=== PATIENT | female | born 1935 | race Caucasian/White ===

== ENCOUNTER 2016-10-13 18:51 | Emergency (ER) | payer OTHER, MEDICAID ==
[~2016-10-13] VITALS: Ht 152.4 cm; Wt 54.5 kg
[2016-10-13 18:53] VITALS: BP 216/98; PULSE 88; RESP 22; TEMP 97.9; O2SAT 97
--- NOTE | 2016-10-13 18:59 | PD ---
Physical Exam Date Seen by Provider: Oct 13, 2016 Time Seen by Provider: 18:58 Narrative 80 Y/o female here with fall from tripping with injury to her Forehead. Patient reported to have LOC for a few seconds. Patient denies Neck pain or other injuries. Patient has no complaints of pain. Patient does not know when her last tetanus was. CT head ordered. Tetanus IM ordered. Patient stable to wait for Bed placement. Data Data Last Documented VS Vital Signs Date Time Temp Pulse Resp B/P Pulse Ox O2 Delivery O2 Flow Rate FiO2 10/13/16 18:53 97.9 88 22 216/98 97 MDM Medical Record Reviewed: Yes Supervised Visit with BRISEIDA: Yes Condition: Stable Giorgi Nunez Oct 13, 2016 18:58
[2016-10-13] MEDS ORDERED: TETANUS/DIPHTHERIA TOXOID ADULT 0.5 ML VIAL IM ONE (19:00)
[2016-10-13 20:18] VITALS: BP 185/82; PULSE 85; RESP 16; TEMP 98.5; O2SAT 98
[2016-10-13] MEDS ORDERED: LIDOCAINE 1%/EPINEPHrine 1:100,000 SOLN 20 ML VIAL INFIL ONE (20:30)
--- NOTE | 2016-10-13 20:41 | RADRPT ---
EXAM DATE/TIME: 10/13/2016 20:21 [facility] COMPARISON: No previous studies available for comparison. INDICATIONS : Trauma; fall. Forehead laceration. RADIATION DOSE: 56.35 CTDIvol (mGy) MEDICAL HISTORY : None SURGICAL HISTORY : None. ENCOUNTER: Initial ACUITY: 1 day PAIN SCALE: 0/10 LOCATION: cranial TECHNIQUE: Multiple contiguous axial images were obtained of the head. Using automated exposure control and adj ustment of the mA and/or kV according to patient size, radiation dose was kept as low as reasonably a chievable to obtain optimal diagnostic quality images. FINDINGS: CEREBRUM: The ventricles are normal for age. No evidence of midline shift, mass lesion, hemorrhage or acute in farction. No extra-axial fluid collections are seen. POSTERIOR FOSSA: The cerebellum and brainstem are intact. The 4th ventricle is midline. The cerebellopontine angle i s unremarkable. EXTRACRANIAL: The visualized portion of the orbits is intact. SKULL: Laceration of the left parasagittal frontal scalp. No radiopaque foreign bodies. The calvaria is in tact. No evidence of skull fracture. CONCLUSION: Negative noncontrast CT of the brain. Left frontal scalp laceration without evidence of skull fractu re. Philip Moncada MD on October 13, 2016 at 20:38 Board Certified Radiologist. This report was verified electronically.
--- NOTE | 2016-10-13 21:08 | PD ---
HPI Chief Complaint: Laceration/Skin Injury Time Seen by Provider: 21:01 Travel History International Travel<30 days: No Contact w/Intl Traveler<30days: No Traveled to known affect area: No History of Present Illness HPI 80-year-old female that presents to the ED for evaluation of injury to her forehead. Per patient she had a trip and fall today and she landed on her head on tile. She states that she possibly lost consciousness for one or 2 seconds. Patient came back to it. Patient has been acting normal per family. She only complains of a slight headache on the area of the cut otherwise she has no neck pain. No back pain. No arm pain or leg pain. She's been walking and was able to get get up on her own with assistance. She does not know she is up-to- date with vaccinations. She denies any chest pain or shortness of breath. No abdominal pain. She denies taking any blood thinners of any kind. She has no allergies to medication. No blurry vision or double vision. No other injuries reported at this time. Pain per patient is 2 out of 10. Patient is from out of town. [facility] Past Medical History Medical History: Denies Significant Hx Diminished Hearing: No Tetanus Vaccination: > 5 Years Past Surgical History Surgical History: No Previous Surgery Social History Alcohol Use: No Tobacco Use: No Substance Use: No Allergies-Medications (Allergen,Severity, Reaction): Coded Allergies: No Known Allergies (Unverified , 10/13/16) Review of Systems Except as stated in HPI: all other systems reviewed are Neg Physical Exam Narrative GENERAL: SKIN: Warm and dry. Patient has a for similar laceration to the mid forehead. Very well approximated. Slight bleeding noted. HEAD: Atraumatic. Normocephalic. EYES: Pupils equal and round 4 mm reactive to light and accommodation. No scleral icterus. No injection or drainage. ENT: No nasal bleeding or discharge. Mucous membranes pink and moist. Tongue is midline. No uvula deviation. NECK: Trachea midline. No JVD. CARDIOVASCULAR: Regular rate and rhythm. No murmurs, S3, S4. RESPIRATORY: No accessory muscle use. Clear to auscultation. Breath sounds equal bilaterally. GASTROINTESTINAL: Abdomen soft, non-tender, nondistended. Hepatic and splenic margins not palpable. MUSCULOSKELETAL: Extremities without clubbing, cyanosis, or edema. No obvious deformities. Full range of motion of the upper and lower extremities bilaterally. 2+ pulses bilaterally. Gait is normal. NEUROLOGICAL: Awake and alert. No obvious cranial nerve deficits. Motor grossly within normal limits. Five out of 5 muscle strength in the arms and legs. Normal speech. Sensation intact bilaterally. PSYCHIATRIC: Appropriate mood and affect; insight and judgment normal. Data Data Last Documented VS Vital Signs Date Time Temp Pulse Resp B/P Pulse Ox O2 Delivery O2 Flow Rate FiO2 10/13/16 20:18 98.5 85 16 185/[address] Brain W/O Iv Contrast(Rout) (10/13/16 18:59) Tetanus/Diphtheria Tox Adult (Tetanus/Di (10/13/16 19:00) Wound Care (10/13/16 20:16) Lidocai-Epi 1%-1:100,000 Inj (Xylocaine- (10/13/16 20:30) MDM Medical Decision Making Medical Screen Exam Complete: Yes Emergency Medical Condition: Yes Medical Record Reviewed: Yes Interpretation(s) Last Impressions Head CT 10/13/161858 Signed Impressions: Service Date/Time: Thursday, October 13, 2016 20:21 - CONCLUSION: Negative noncontrast CT of the brain. Left frontal scalp laceration without evidence of skull fracture. Philip Moncada MD Differential Diagnosis Laceration versus head injury versus traumatic head injury Narrative Course 80-year-old female that presents to the ED for evaluation of head injury. Patient was properly examined and was found to have signs and symptoms consistent appears to be head injury with laceration. CT of the head was ordered. Patient was given tetanus booster. After explained procedure to the patient and she agreed to it laceration. Per sitting procedure note. Told to get sutures removed in 7 days. Wound care was endorsed. CT of the head was negative for acute disease. Patient was pressure. Patient is neurovascular intact. I instructed family as to what to look for in case of emergency. She understands recent to come back. See ED worsening symptoms. Motrin or Tylenol for pain as needed. Ice to the area. Procedures Procedure Narrative LACERATION LOCATION: forehead lac LENGTH: 4 cm NUMBER OF STITCHES/KAVITA: 9 sutures REPAIR: The area of the laceration was prepped with Betadine and sterilely draped. The laceration was infiltrated with 1% Xylocaine. The wound was copiously irrigated and explored without evidence of foreign body, tendon injury or neurovascular injury. The wound was closed using 4-0 Ethilone. This was a 1 layer repair. A sterile dressing was applied. The patient was advised to keep the dressing clean and dry. Patient tolerated the procedure well. Diagnosis Primary Impression: Head injury, acute Qualified Code: S09.90XA - Head injury, acute, initial encounter Additional Impression: Laceration of head Qualified Code: S01.81XA - Laceration of other part of head without foreign body, initial encounter Patient Instructions: General Instructions Additional Instructions: Wound care daily with soap and water. You can apply bandaid if needed. Neosporyn or OTC antibiotic ointment to area as needed twice a day for at least 2 weeks to help with scarring and prevent infection. Meoderma OTC for scarring if needed. Avoid sun exposure for 2 months as the sun could make scar darker and more noticeable. Get sutures removed in 5-7 days. See ED if worst. Ice as needed. Tylenol for pain. Med/Other Pt SpecificInfo: No Change to Meds, Wound Care Disposition: 01 DISCHARGE HOME Condition: Stable Humble Doshi Oct 13, 2016 21:08
== END 2016-10-13 21:36 | disposition home or self-care (01) ==
LOC: NEPD 18:51
DX: S01.81XA Laceration without foreign body of other part of head, initial encounter (principal); Z23 Encounter for immunization; W18.09XA Striking against other object with subsequent fall, initial encounter; Y93.9 Activity, unspecified; Y92.9 Unspecified place or not applicable; Y99.8 Other external cause status
CPT/HCPCS: 12013; 70450; 90471; 90714

== ENCOUNTER 2016-10-16 02:42 | Inpatient (IN) | payer MEDICAID, OTHER ==
[~2016-10-16] VITALS: Ht 149.9 cm; Wt 57.2 kg
[2016-10-16 02:44] VITALS: BP 177/75; PULSE 85; RESP 17; TEMP 97.8; O2SAT 96
--- NOTE | 2016-10-16 02:50 | PD ---
HPI Chief Complaint: fall, right hip pain Time Seen by Provider: 02:49 Travel History International Travel<30 days: No Contact w/Intl Traveler<30days: No Traveled to known affect area: No History of Present Illness HPI 80-year-old female fell after she came out of the bathroom and was unable to stand or ambulate because of right hip pain. She was brought in by EMS. Patient had fallen couple days ago and hit her head. She was seen in this emergency room and had sutures put in. She is here with her daughter for her grandsons graduation ceremony. They are from [place]. This time patient did not hit her head. No history of syncope or loss of consciousness. She is complaining of right hip pain. Vital signs were within acceptable limits. [facility] Past Medical History Narrative Medical List of her past medical, surgical, social and family history is reviewed from the nursing note. Diminished Hearing: No Social History Alcohol Use: No Tobacco Use: No Substance Use: No Allergies-Medications (Allergen,Severity, Reaction): Coded Allergies: No Known Allergies (Unverified , 10/16/16) Comments No known drug allergies. Reported Meds & Prescriptions Reported Meds & Active Scripts Active Reported Aspirin 81 Mg Tabdr 81 Mg PO DAILY Narrative Medication Awaiting for the nurse to give the medication reconciliation. As per the daughter patient is not taking any medications. Review of Systems Except as stated in HPI: all other systems reviewed are Neg Physical Exam Narrative GENERAL: Awake, alert, elderly, mild distress SKIN: Focused skin assessment warm/dry. Scabs with healing wound and sutures on the middle of the forehead HEAD: Atraumatic. Normocephalic. EYES: Pupils equal and round. No scleral icterus. No injection or drainage. ENT: No nasal bleeding or discharge. Mucous membranes pink and moist. NECK: Trachea midline. No JVD. CARDIOVASCULAR: Regular rate and rhythm. No murmur appreciated. RESPIRATORY: No accessory muscle use. Clear to auscultation. Breath sounds equal bilaterally. GASTROINTESTINAL: Abdomen soft, non-tender, nondistended. Hepatic and splenic margins not palpable. MUSCULOSKELETAL: Right leg shortened and externally rotated. No clubbing. No cyanosis. Bilateral pedal edema. NEUROLOGICAL: Awake and alert. No obvious cranial nerve deficits. Motor grossly within normal limits. Normal speech. PSYCHIATRIC: Appropriate mood and affect; insight and judgment normal. Data Data Last Documented VS Vital Signs Date Time Temp Pulse Resp B/P Pulse Ox O2 Delivery O2 Flow Rate FiO2 10/16/16 03:55 98 Room Air 10/16/16 02:50 85 17 10/16/16 02:44 97.8 177/75 Orders Hip, Uni(Ap&Lat) W Ap Pelvis (10/16/16 ) Electrocardiogram (10/16/16 03:04) Basic Metabolic Panel (Bmp) (10/16/16 03:04) Complete Blood Count With Diff (10/16/16 03:04) Prothrombin Time / Inr (Pt) (10/16/16 03:04) Chest, Single Ap (10/16/16 03:04) Ecg Monitoring (10/16/16 03:04) Bilateral Bp Monitoring (10/16/16 03:04) Iv Access Insert/Monitor (10/16/16 03:04) Oximetry (10/16/16 03:04) Oxygen Administration (10/16/16 03:04) Sodium Chloride 0.9% Flush (Ns Flush) (10/16/16 03:15) Admit To Inpatient (10/16/16 ) Vital Signs (Adult) Q4H (10/16/16 04:02) Activity Bed Rest (10/16/16 04:02) Social Science Analyst / Telemetry .CONTINUOUS (10/16/16 04:02) Diet Npo (10/16/16 Breakfast) Sodium Chloride 0.9% Flush (Ns Flush) (10/16/16 04:15) Sodium Chloride 0.9% Flush (Ns Flush) (10/16/16 09:00) Basic Metabolic Panel (Bmp) (10/17/16 06:00) Complete Blood Count With Diff (10/17/16 06:00) Case Management Consult (10/16/16 04:02) Naloxone Inj (Narcan Inj) (10/16/16 04:15) Inpatient Certification (10/16/16 ) Consult Orthopedic (10/16/16 ) Morphine Inj (Morphine Inj) (10/16/16 04:15) Admit Order (Ed Use Only) (10/16/16 04:03) Labs Laboratory Tests Test 10/16/16 04:00 White Blood Count 12.0 TH/MM3 Red Blood Count 4.12 MIL/MM3 Hemoglobin 12.4 GM/DL Hematocrit 36.3 % Mean Corpuscular Volume 87.9 FL Mean Corpuscular Hemoglobin 30.0 PG Mean Corpuscular Hemoglobin 34.1 % Concent Red Cell Distribution Width 13.6 % Platelet Count 192 TH/MM3 Mean Platelet Volume 8.9 FL Neutrophils (%) (Auto) 89.2 % Lymphocytes (%) (Auto) 6.3 % Monocytes (%) (Auto) 4.2 % Eosinophils (%) (Auto) 0.1 % Basophils (%) (Auto) 0.2 % Neutrophils # (Auto) 10.7 TH/MM3 Lymphocytes # (Auto) 0.8 TH/MM3 Monocytes # (Auto) 0.5 TH/MM3 Eosinophils # (Auto) 0.0 TH/MM3 Basophils # (Auto) 0.0 TH/MM3 CBC Comment AUTO DIFF Differential Comment AUTO DIFF CONFIRMED Red Cell Morphology Comment NORMAL Prothrombin Time 11.5 SEC Prothromb Time International 1.0 RATIO Ratio Sodium Level 139 MEQ/L Potassium Level 3.7 MEQ/L Chloride Level 105 MEQ/L Carbon Dioxide Level 25.5 MEQ/L Anion Gap 9 MEQ/L Blood Urea Nitrogen 16 MG/DL Creatinine 0.64 MG/DL Estimat Glomerular Filtration 90 ML/MIN Rate Random Glucose 118 MG/DL Calcium Level 8.6 MG/DL 25-Hydroxy Vitamin D Total 5.4 ng/ML MDM Medical Decision Making Medical Screen Exam Complete: Yes Emergency Medical Condition: Yes Medical Record Reviewed: Yes Interpretation(s) Twelve-lead EKG was reviewed by me. Normal sinus rhythm, left axis deviation, nonspecific ST-T wave changes. Heart rate of 83 bpm. Differential Diagnosis Hip fracture, hip dislocation Narrative Course 3:10 AM x-ray is ordered. Awaiting for the x-ray to be done and resulted. I' ve ordered blood work for preop. My suspicion for hip fracture is high. 3:52 AM the x-ray of the hip was seen by me. Patient has right intertrochanteric fracture. I put a call out for the hospitalist to admit this patient. Awaiting for the blood test to be resulted. Procedures EKG Prior to Arrival: No Diagnosis Primary Impression: Fall Qualified Code: W19.XXXA - Fall, initial encounter Additional Impression: Intertrochanteric fracture of right femur Qualified Code: S72.141A - Intertrochanteric fracture of right femur, closed, initial encounter Admitting Information Admitting Physician Requests: Admit Scripts Calcium Carbonate-Vitamin D (Calcium 600+D 200)600-200 Mg-Unit Tab1 Tab PO BID 30 Days Ref 0 Prov:Fuad Munoz 10/17/16 Cholecalciferol (Vitamin D3)2,000 Unit Cap2,000 Units PO DAILY #56 CAP Ref 0 Prov:Fuad Munoz 10/17/16 Ergocalciferol 50,000 Unit Cap50,000 Units PO Q7D #56 CAP Prov:Fuad Munoz 10/17/16 Rivaroxaban (Xarelto)10 Mg Tab10 Mg PO DAILY #14 TAB Ref 0 Prov:Fuad Munoz 10/17/16 Hydrocodone-Acetaminophen (Jolon)7.5-325 mg Tab1 Tab PO Q4H PRN (PAIN) #60 TAB Ref 0 Prov:Fuad Munoz 10/17/16 Felecia Gates MD Oct 16, 2016 02:50
[2016-10-16] MEDS ORDERED: ASPI1TAB69 PO (03:12)
[2016-10-16] MEDS ORDERED: SODIUM CHLORIDE 0.9% FLUSH 10 ML FLUSH IVF PRN (03:15)
--- NOTE | 2016-10-16 04:06 | RADRPT ---
EXAM DATE/TIME: 10/16/2016 03:18 [facility] COMPARISON: No previous studies available for comparison. INDICATIONS : Short of breath. MEDICAL HISTORY : None. SURGICAL HISTORY : None. ENCOUNTER: Initial ACUITY: 1 day PAIN SCORE: 0/10 LOCATION: Bilateral chest FINDINGS: A single view of the chest demonstrates the lungs to be symmetrically aerated without evidence of mas s, infiltrate or effusion. The heart size is moderately enlarged.. Osseous structures are intact. CONCLUSION: 1. No acute pulmonary infiltrates 2. Moderate compensated cardiomegaly Kenny Salcido MD on October 16, 2016 at 4:04 Board Certified Radiologist. This report was verified electronically.
--- NOTE | 2016-10-16 04:07 | RADRPT ---
EXAM DATE/TIME: 10/16/2016 03:18 [facility] COMPARISON: No previous studies available for comparison. INDICATIONS : Right hip pain after fall. MEDICAL HISTORY : None. SURGICAL HISTORY : None. ENCOUNTER: Initial ACUITY: 1 day PAIN SCORE: 10/10 LOCATION: Right hip FINDINGS: There is an oblique fracture through the trochanteric region of the proximal right femur. The femoral head remains within the acetabulum. The bony structures the pelvis are grossly intact. There is good alignment of the SI joints and pubic symphysis. Mild degenerative changes are noted both hip joints. CONCLUSION: Oblique fracture through the trochanteric region of the proximal right femur. Kenny Salcido MD on October 16, 2016 at 4:05 Board Certified Radiologist. This report was verified electronically.
[2016-10-16] MEDS ORDERED: SODIUM CHLORIDE 0.9% FLUSH 10 ML FLUSH IV FLUSH PRN (04:15)
[2016-10-16] MEDS ORDERED: NALOXONE HCL 0.4 MG/ML AMP IV PRN (04:15)
[2016-10-16] MEDS ORDERED: MORPHINE SULFATE 4 MG/ML INJ IV PUSH PRN ×2 (04:15→17:45)
[2016-10-16 04:16] LABS: AUTOMATED NEUTROPHIL # 10.7 TH/MM3 (1.8-7.7); BASOPHIL % 0.2 % (0.0-2.0); EOSINOPHIL % 0.1 % (0.0-4.0); HEMATOCRIT 36.3 % (35.0-46.0); LYMPH % 6.3 % (9.0-44.0); LYMPHOCYTE # 0.8 TH/MM3 (1.0-4.8); MEAN CELL VOLUME 87.9 FL (80.0-100.0); MEAN CORPUSCULAR HGB CONC 34.1 % (32.0-36.0); MONO % 4.2 % (0.0-8.0); NEUT % 89.2 % (16.0-70.0); PLATELET COUNT 192 TH/MM3 (150-450); RED BLOOD COUNT 4.12 MIL/MM3 (4.00-5.30); RED CELL DISTRIBUTION WIDTH 13.6 % (11.6-17.2)
[2016-10-16 04:19] LABS: HEMO FLAGS AUTO DIFF
[2016-10-16 04:27] LABS: PROTHROMBIN TIME - PATIENT 11.5 SEC (9.8-11.6)
--- NOTE | 2016-10-16 04:34 | HHI.HP ---
[facility] No Primary Care Physician Admission Diagnosis fall, hip fracture Diagnoses: Chief Complaint: fall hip fracture Travel History International Travel<30 Days: No Contact w/Intl Traveler <30 Da: No Traveled to Known Affected Are: No History of Present Illness This is a 80 year old female patient who denies prior medical history. Patient reports she does not have a PCP and has no medial problems. Patient is here from [place] via a [address], reports she did take multiple stops denies calf pain. Patient had a fall two days ago reports she missed a step while taking groceries and. Patient did receive hit her head and required sutures to repair forehead laceration. Patient fell a second time today she slipped and fell on the tile floor after she came out of the bathroom. Patient reports she landed on her left side and subsequently was unable to stand or ambulate because of right hip pain. Patient reports the pain has improved after she was given morphine IV in the emergency department. Patient reports pain is worse with movement or weightbearing. Patient described the initial pain as severe and located in right hip area. Prior to fall patient denies shortness of breath feeling dizzy , lightheaded, palpitations, chest pain or presyncopal aura. Patient denies head trauma or loss of consciousness during this fall. Patient reports prior to coming down to [place] she was in her normal state of health. Denies nausea , vomiting, diarrhea, constipation, fevers or chills. Review of Systems Except as stated in HPI: all other systems reviewed are Neg Past Family Social History Past Medical History denies prior medical history Past Surgical History Denies prior surgical intervention Reported Medications Aspirin 81 Mg Tabdr 81 Mg PO DAILY Allergies: Coded Allergies: No Known Allergies (Unverified , 10/16/16) Active Ordered Medications Current Medications Medications (Trade) Dose Ordered Sig/Enrique Route Start Time Stop Time Status Last Admin (NS Flush) 2 ml UNSCH PRN IVF 10/16/16 03:15 (NS Flush) 2 ml UNSCH PRN IV FLUSH 10/16/16 04:15 (NS Flush) 2 ml BID IV FLUSH 10/16/16 09:00 (Narcan Inj) 0.4 mg UNSCH PRN IV 10/16/16 04:15 (Morphine Inj) 2 mg Q3H PRN IV PUSH 10/16/16 04:15 Family History Denies family medical history including CAD, diabetes mellitus, CVA, cancer or anesthesia reactions Social History Patient lives in [place] with her no tobacco, ETOH use or illicit drug use Physical Exam Vital Signs Vital Signs Date Time Temp Pulse Resp B/P Pulse Ox O2 Delivery O2 Flow Rate FiO2 10/16/16 02:50 85 17 96 Room Air 10/16/16 02:44 97.8 85 17 177/75 96 Physical Exam GENERAL: This is a well-nourished, well-developed patient, in no apparent distress. SKIN: intact sutures forehead HEAD: sutures intact forehead EYES: Pupils equal round and reactive. Extraocular motions intact. No scleral icterus. No injection or drainage. CARDIOVASCULAR: Regular rate and rhythm without murmurs, gallops, or rubs. RESPIRATORY: Clear to auscultation. Breath sounds equal bilaterally. No wheezes , rales, or rhonchi. GASTROINTESTINAL: Abdomen soft, non-tender, nondistended. No hepato-splenomegaly , or palpable masses. No guarding. MUSCULOSKELETAL: Bilateral lower extremity edema 1+, No calf tenderness. Negative Homans sign bilaterally. RLE shortened NEUROLOGICAL: Awake and alert. Motor and sensory grossly within normal limits, with the exception of RLE. 4 out of 5 muscle strength in all muscle groups, with the exception of R lower extremity secondary to pain. Normal speech. Laboratory Laboratory Tests Test 10/16/16 04:00 White Blood Count 12.0 Red Blood Count 4.12 Hemoglobin 12.4 Hematocrit 36.3 Mean Corpuscular Volume 87.9 Mean Corpuscular Hemoglobin 30.0 Mean Corpuscular Hemoglobin 34.1 Concent Red Cell Distribution Width 13.6 Platelet Count 192 Mean Platelet Volume 8.9 Neutrophils (%) (Auto) 89.2 Lymphocytes (%) (Auto) 6.3 Monocytes (%) (Auto) 4.2 Eosinophils (%) (Auto) 0.1 Basophils (%) (Auto) 0.2 Neutrophils # (Auto) 10.7 Lymphocytes # (Auto) 0.8 Monocytes # (Auto) 0.5 Eosinophils # (Auto) 0.0 Basophils # (Auto) 0.0 CBC Comment AUTO DIFF Result Diagram: 10/16/16 0400 Imaging Last Impressions Chest X-Ray 10/16/16 0304 Signed Impressions: Service Date/Time: Sunday, October 16, 2016 03:18 - CONCLUSION: 1. No acute pulmonary infiltrates 2. Moderate compensated cardiomegaly Kenny Salcido MD Hip and Pelvis X-Ray 10/16/16 0000 Signed Impressions: Service Date/Time: Sunday, October 16, 2016 03:18 - CONCLUSION: Oblique fracture through the trochanteric region of the proximal right femur. Kenny Salcido MD Assessment and Plan Problem List: (1) Intertrochanteric fracture of right femur ICD Code: S72.141A Status: Acute (2) Fall ICD Code: W19.XXXA Status: Acute Assessment and Plan This is a 80 year old female patient who denies prior medical history. Patient reports she does not have a PCP and has no medial problems. Patient is here from [place] via a [address], reports she did take multiple stops denies calf pain, negative Pitts's sign. Patient had a fall two days ago reports she missed a step while taking groceries and. Patient did receive hit her head and required sutures to repair forehead laceration. Patient fell a second time today she slipped and fell on the tile floor after she came out of the bathroom. Patient reports she landed on her left side and subsequently was unable to stand or ambulate because of right hip pain. Fall Right proximal femur fracture trochanteric region: Hip and pelvis x-ray reviewed and reveals an oblique fracture through the trochanteric region of the proximal right femur consult orthopedic surgery NPO pain management with morphine as needed Mild Leukocytosis WBC 12.0 possible reactive recheck in AM CXR reviewed no acute pulmonary infiltrates mild compensated cardiomegaly UA C&S if indicated pending DVT prophylaxis will avoid chemical DVT prophylaxis at this time likely pending surgical intervention US BLE extremities to rule out DVT pending Discussed with ER provider, nursing patient and family at bedside Written by Esther Gomez, acting as scribe for Dr. Woodward on 10/16/16 at 05: 23. This note was transcribed by scribe [Esther Gomez,]. I, Dr. Nancy Woodward personally performed the history, physical exam, and medical decision making; and confirmed the accuracy of the information in the transcribed note. Authenticated by Dr. Nancy Woodward on 10/16/16 at 05:23. Physician Certification 2 Midnight Certification Type: Admission for Inpatient Services Order for Inpatient Services The services are ordered in accordance with Medicare regulations or non- Medicare payer requirements, as applicable. In the case of services not specified as inpatient-only, they are appropriately provided as inpatient services in accordance with the 2-midnight benchmark. Estimated LOS (days): 3 days is the estimated time the patient will need to remain in the hospital, assuming treatment plan goals are met and no additional complications. Post-Hospital Plan: Not yet determined Problem Qualifiers (1) Intertrochanteric fracture of right femur: Qualified Code: S72.141A - Intertrochanteric fracture of right femur, closed, initial encounter (2) Fall: Qualified Code: W19.XXXA - Fall, initial encounter Esther Gomez Oct 16, 2016 04:34 Nancy Woodward MD Oct 16, 2016 07:04
[2016-10-16 04:40] LABS: BICARBONATE 25.5 MEQ/L (21.0-32.0); POTASSIUM 3.7 MEQ/L (3.5-5.1)
[2016-10-16 04:52] LABS: SCAN/DIFF AUTO DIFF CONFIRMED
[2016-10-16 05:04] VITALS: BP 141/64; PULSE 83; RESP 16; O2SAT 96
[2016-10-16 06:56] VITALS: BP 141/64; PULSE 81; RESP 18; O2SAT 98
[2016-10-16 07:39] LABS: BACTERIA, URINE MOD /hpf; BLOOD, URINE TRACE (NEG); GLUCOSE,URINE NEG (NEG); KETONE, URINE 80 mg/dL (NEG); MUCUS URINE FEW /lpf (OCC); NITRITE,URINE NEG (NEG); SQUAMOUS EPITHELIAL CELL URINE 1 /hpf (0-5); URINE COLOR YELLOW (YELLW/STRAW)
[2016-10-16 07:45] LABS: COMMENT (UR) CATH-CULTURE IND; CULTURE IF INDICATED CATH CULTURE IND
--- NOTE | 2016-10-16 08:35 | EKG ---
Date Performed: 10/16/2016 Time Performed: 03:55:49 PTAGE: 80 years EKG: Sinus rhythm LEFT ANTERIOR FASCICULAR BLOCK NONSPECIFIC T-WAVE ABNORMALITY ABNORMAL ECG NO PREVIOUS TRACING DOCTOR: Oliver Escobedo Interpretating Date/Time 10/16/2016 08:35:00
[2016-10-16] MEDS: SODIUM CHLORIDE 0.9% FLUSH 10 ML FLUSH IV FLUSH SCH ×2 (09:00→21:00)
--- NOTE | 2016-10-16 09:00 | MB ---
cc: RYLEE SOSA DATE OF CONSULTATION 10/16/2016 REASON FOR CONSULTATION Right hip intertrochanteric fracture. CONSULTING PHYSICIAN Dr. Lau HISTORY Mrs. Wolf is a 80-year-old female who is visiting from [place]. She had a fall. She went to sit on a swivel recliner. She fell, landed on her right side. She had immediate right hip pain. She was unable to stand or ambulate. She presented to the emergency room where x-rays revealed a right hip intertrochanteric fracture. She is currently awake and alert in the emergency department. She has family at bedside. The pain is worse with movement and improved with rest. She denies any dizziness, syncope or loss of consciousness.. PAST MEDICAL HISTORY ILLNESSES None SURGERIES None MEDICATIONS Aspirin ALLERGIES None FAMILY HISTORY The patient denies any familial medical problems. SOCIAL HISTORY The patient lives in [place] with her . She denies alcohol, tobacco or drug use. REVIEW OF SYSTEMS The patient denies headache, visual changes, neck pain, chest pain, shortness of breath, abdominal pain, nausea or recent weight loss. She complains of right hip pain. PHYSICAL EXAMINATION The patient is a thin 80-year female who is awake and alert. She is alert and oriented x3. VITAL SIGNS: Temperature 97.8, pulse 85, respirations 17, blood pressure 177/75, O2 sat 96% on room air. HEAD: The patient is normocephalic. EYES: Pupils are equal. NECK: Soft and nontender. Trachea is midline. ABDOMEN: Soft, nontender and nondistended. EXTREMITIES: Examination of the bilateral upper extremities reveals no pain with shoulder, elbow or wrist motion. She has intact sensation in all fingers. She has good cap refill in all fingers. Skin is intact to both hands. Radial pulses are palpable. Sensation is intact in all fingers. Examination of left leg reveals no pain with hip, knee or ankle motion. Skin is intact. Dorsalis pedis pulses palpable. Sensation is intact. Examination of right leg reveals pain with any hip motion. She has no tenderness around her knee or ankle. The calf and thigh compartments are soft. Sensation is intact in the right foot. Dorsalis pedis pulse is palpable. X-RAYS X-rays of the right hip were reviewed. X-rays reveal a displaced right hip intertrochanteric fracture. IMPRESSION 1. Displaced right hip intertrochanteric fracture. 2. Probable osteoporosis. PLAN Treatment options were discussed with the patient. At this point, I would recommend reduction and intramedullary nail fixation of the right hip. The risks of surgery include bleeding, infection, injury to arteries, nerves and blood vessels, nonunion, malunion, painful hardware, avascular necrosis, need for hip replacement, as well as medical complications including blood clot, stroke, heart attack and . All questions were answered. I will plan on surgery today. A mid-level provider in my office, nurse practitioner or PA, may see this patient on a follow-up basis and continue to implement the objective of this plan including: Starting or adjusting medications, injections of muscle, tendon, bursa or joints, cast application, orthotic or brace application, physical therapy, further radiographic studies including x-ray, MRI, CT, ultrasounds or bone scan, vascular studies, neurologic studies, or other specialist consultations, and proceeding with surgical management as appropriate. MD MINOR Reina/YENNIFER /8:16 AM /8:53 AM
[2016-10-16 09:18] VITALS: BP 164/80; PULSE 84; RESP 18; O2SAT 98
--- NOTE | 2016-10-16 10:57 | RADRPT ---
EXAM DATE/TIME: 10/16/2016 09:32 [facility] COMPARISON: No previous studies available for comparison. INDICATIONS : Leg swelling. Right hip fracture. MEDICAL HISTORY : Recent fall with right hip fracture. SURGICAL HISTORY : None. ENCOUNTER: Initial ACUITY: 2 day PAIN SCORE: 0/10 LOCATION: Bilateral leg. TECHNIQUE: Venous ultrasound of the left and right leg was performed from the inguinal ligament to the proximal calf. Real-time, color Doppler and spectral tracing, compression and augmentation techniques were us ed. FINDINGS: RIGHT LEG: There is normal compressibility of the deep venous system from the inguinal region to the proximal ca lf. No echogenic clot is seen in the lumen of the common femoral, femoral, popliteal, and posterior tibial veins. There is a normal response of the venous system to proximal and distal augmentation an d respiration. LEFT LEG: There is normal compressibility of the deep venous system from the inguinal region to the proximal ca lf. No echogenic clot is seen in the lumen of the common femoral, femoral, popliteal, and posterior tibial veins. There is a normal response of the venous system to proximal and distal augmentation an d respiration. CONCLUSION: 1. No evidence of deep venous thrombosis. Ismael Walker MD on October 16, 2016 at 10:54 Board Certified Radiologist. This report was verified electronically.
[2016-10-16 11:00] VITALS: BP 165/65; PULSE 73; RESP 16; TEMP 98.2; O2SAT 99
[2016-10-16] MEDS ORDERED: PROPOFOL 200 MG/20 ML AMP IV ONE (12:00)
[2016-10-16] MEDS ORDERED: ePHEDrine/NS 25 MG/5 ML SYR IV ONE (12:00)
[2016-10-16] MEDS ORDERED: VANCOMYCIN HCL 1000 MG VIAL ONE (15:20)
[2016-10-16] MEDS ORDERED: GENTAMICIN SULFATE 80 MG/2 ML VIAL ONE (15:20)
[2016-10-16] MEDS ORDERED: ceFAZolin INJ 1,000 MG VIAL ONE (15:20)
[2016-10-16] MEDS ORDERED: BUPIVACAINE/EPINEPHRINE 0.25% PF 30 ML VIAL ONE (15:25)
[2016-10-16] MEDS ORDERED: ACETAMINOPHEN 1000 MG/100 ML VIAL IV ONE (16:27)
--- NOTE | 2016-10-16 17:34 | PD.OP ---
cc: Jeremy Denis MD Operative Report Date of Surgery: Oct 16, 2016 Preoperative Diagnosis: Right hip intertrochanteric fracture Postoperative Diagnosis: Procedure: Reduction and intramedullary nail fixation right hip Anesthesia: Gen. Surgeon: Jeremy Denis Rn Lpn Cna(s): KIRSTEN Rivera PA-C The surgical procedure was assisted by my physician medical assistant per diem. My P.A. presence was necessary throughout this case for the manipulation and positioning of the surgical extremity. My P.A. was assisting me throughout the duration of this procedure. The skill set of a physician medical assistant per diem was medically necessary to complete this procedure. During the surgical case the hybrid technologist was working at the back table and the physician medical assistant per diem was directly assisting me. Operation and Findings: Implants used: 11 mm 130 Synthes TFNA short troch nail Plan of activity: Weight-bear as tolerated Patient was seen and evaluated preoperatively. The patient has significant hip pain from intertrochanteric hip fracture. The risk and benefits of surgery were discussed in depth with the patient to include bleeding infection nonunion malunion and need for hip replacement painful hardware as well as medical competitions including but not stroke heart attack and . Informed consent was obtained. Operative site was marked. Patient was brought to the operating room and placed on fracture table. IV sedation was administered by anesthesiologist. Timeout procedure was performed. Hip and leg were prepped with alcohol followed by DuraPrep and draped in the usual sterile fashion. IV antibiotics were given prior to incision. Procedure began with reduction of fracture. Traction was applied. The leg was manipulated to achieve reduction. Excellent reduction was achieved. Fluoroscopy was used to confirm reduction. A three inch incision was made proximal to the trochanter. Subcutaneous tissue was dissected bluntly. Guidepin was placed at the tip of the trochanter and advanced into the femoral canal. Fluoroscopy confirmed appropriate guidepin placement. A opening reamer was placed over the guidepin. The Synthes TFNA nail was attached to the insertion handle. Nail was now placed through the tip of the trochanter into the femoral canal. Fluoroscopy confirmed appropriate nail placement. A second incision was made over the lateral thigh. Cannulas were placed through the insertion handle down to the femur. Guidepin was now placed through the femoral nail into the center of the femoral head. Fluoroscopy confirmed appropriate guidepin placement. Screw length was measured. Cannulated drill was placed over the guidepin. Appropriate length lag screw was now placed. Traction was released and compression was applied. The set screw was now tightened in dynamic mode. Using the insertion handle as a guide a distal interlocking screw was drilled and placed. Final fluoroscopy revealed well aligned fracture with well-placed hardware. Incision was closed with 3-0 Vicryl and beto. Sterile dressings were applied. Patient was awakened and transferred to recovery room. Jeremy Denis MD Oct 16, 2016 17:34
[2016-10-16] MEDS ORDERED: ACETAMINOPHEN/HYDROcodone 325 MG/7.5 MG TAB PO PRN (17:45)
[2016-10-16] MEDS ORDERED: SODIUM CHLORIDE 0.9% FLUSH 5 ML FLUSH IVF PRN (17:45)
[2016-10-16] MEDS ORDERED: ONDANSETRON HCL 4 MG/2 ML VIAL IVP PRN (17:45)
[2016-10-16] MEDS ORDERED: diphenhydrAMINE HCL 25 MG CAP PO PRN (17:45)
--- NOTE | 2016-10-16 17:49 | RADRPT ---
EXAM DATE/TIME: 10/16/2016 17:27 [facility] COMPARISON: HIP RIGHT (AP&LAT 2/3VWS) W AP PELVIS, October 16, 2016, 3:18. INDICATIONS : ORIF right hip. MEDICAL HISTORY : None. SURGICAL HISTORY : None. ENCOUNTER: Subsequent ACUITY: 1 day PAIN SCORE: Non-responsive. LOCATION: Right pelvis FINDINGS: Multiple coned down views of right hip were obtained and demonstrate the patient status post open rig id internal fixation with intramedullary oliiver and locking cannulated screw transfixing the intertrocha nteric fracture. The fracture fragments are in anatomic alignment. CONCLUSION: Status post open rigid internal fixation. Josiah Miller MD on October 16, 2016 at 17:41 Board Certified Radiologist. This report was verified electronically.
[2016-10-16] MEDS ORDERED: DO NOT ADM ANY ANTICOAGULANT DRUGS PRN (17:53)
[2016-10-16] MEDS ORDERED: *morphine SULFATE 8 MG/ML PERIprocedure ONLY ONE (18:30)
[2016-10-16] MEDS ORDERED: ERGOCALCIFEROL (VIT D2) 50,000 UNIT CAP PO ONE (19:00)
[2016-10-16] MEDS: CALCIUM/VITAMIN D 250 MG/125 U TAB PO SCH (21:00)
[2016-10-16] MEDS: SODIUM CHLORIDE 0.9% FLUSH 5 ML FLUSH IVF SCH (21:00)
[2016-10-16 22:56] VITALS: BP 125/78; PULSE 82; RESP 16; TEMP 96.5; O2SAT 96
[2016-10-17] VITALS (7 sets, daily range): BP systolic 113–145; BP diastolic 55–74; PULSE 65–98; RESP 16–20; TEMP 97.7–99.6; O2SAT 92–96
[2016-10-17] MEDS: ACETAMINOPHEN/HYDROcodone 325 MG/7.5 MG TAB PO PRN ×3 (05:50→18:40)
[2016-10-17 06:53] LABS: AUTOMATED NEUTROPHIL # 5.8 TH/MM3 (1.8-7.7); BASOPHIL % 0.3 % (0.0-2.0); EOSINOPHIL # 0.1 TH/MM3 (0-0.4); HEMATOCRIT 32.5 % (35.0-46.0); HEMO FLAGS DIFF FINAL; LYMPH % 13.5 % (9.0-44.0); MEAN CORPUSCULAR HEMOGLOBIN 29.9 PG (27.0-34.0); MEAN CORPUSCULAR HGB CONC 33.7 % (32.0-36.0); MONO % 8.3 % (0.0-8.0); NEUT % 76.9 % (16.0-70.0); PLATELET COUNT 149 TH/MM3 (150-450); RED BLOOD COUNT 3.66 MIL/MM3 (4.00-5.30); RED CELL DISTRIBUTION WIDTH 13.5 % (11.6-17.2); WHITE BLOOD COUNT 7.5 TH/MM3 (4.0-11.0)
[2016-10-17] MEDS ORDERED: XARE10TA PO (06:58)
[2016-10-17] MEDS ORDERED: ERGO1CAP30 PO (06:58)
[2016-10-17] MEDS ORDERED: HYDR-3288 PO (06:58)
[2016-10-17] MEDS ORDERED: WALKER/ADULT/FO1 MIS (06:58)
[2016-10-17] MEDS ORDERED: CALCTAB19 PO (06:58)
[2016-10-17] MEDS ORDERED: VITA2000 PO (06:58)
--- NOTE | 2016-10-17 07:07 | PD.ORT.PN ---
Subjective Subjective Remarks POD 1 s/p IMN right hip doing well. pain controlled. has not been out of bed yet Objective Vitals Vital Signs Date Time Temp Pulse Resp B/P Pulse Ox O2 Delivery O2 Flow Rate FiO2 10/17/16 04:30 97.7 83 17 145/64 95 10/16/16 22:56 96.5 82 16 125/78 96 10/16/16 22:45 97.6 74 16 107/58 94 Room Air 10/16/16 22:00 72 16 105/57 93 Room Air 10/16/16 21:00 75 16 108/56 93 Room Air 10/16/16 20:00 78 16 115/60 92 Room Air 10/16/16 19:30 83 15 120/66 100 Nasal Cannula 2 10/16/16 19:00 97.5 80 15 135/59 99 Nasal Cannula 2 10/16/16 18:45 81 15 143/65 98 Nasal Cannula 2 10/16/16 18:35 15 10/16/16 18:30 80 15 154/68 100 Nasal Cannula 3 10/16/16 18:15 75 15 160/69 99 Nasal Cannula 3 10/16/16 18:00 78 15 165/69 98 Nasal Cannula 3 10/16/16 17:53 98.6 71 17 168/71 100 Nasal Cannula 4 10/16/16 11:00 98.2 73 16 165/65 99 Room Air 10/16/16 09:18 84 18 164/80 98 Room Air 10/16/16 09:14 12 I/O 10/16/16 10/16/16 10/16/16 10/17/16 10/17/16 10/17/16 07:00 15:00 23:00 07:00 15:00 23:00 Intake Total 1040 ml 120 ml Output Total 900 ml 600 ml Balance 140 ml -480 ml Intake Oral 240 ml 120 ml IV Total 100 ml Other 700 ml Output Urine Total 850 ml 600 ml Estimated Blood Loss 50 ml # Bowel Movements 0 Result Diagram: 10/17/16 0623 10/16/16 0400 Objective Remarks RLE: dressings clean and dry.inact. NVI Assessment & Plan Assessment and Plan 1) Right Intertroch Fx s/p IMN - POD 1 -WBAT -dressing changes POD 2 -CM for rehab placement -DVT prophylaxis with lovenox and transition to Xarelton on DC -F/U with Endy or JOO in 2 weeks Fuad Munoz Oct 17, 2016 07:07
[2016-10-17 07:18] LABS: BICARBONATE 26.2 MEQ/L (21.0-32.0); POTASSIUM 3.4 MEQ/L (3.5-5.1)
--- NOTE | 2016-10-17 07:57 | HHI.PR ---
Subjective Remarks patient is very delightful and sharp no pain complains voiding spontaneously apparently missed a step and fell Objective Vitals Vital Signs Date Time Temp Pulse Resp B/P Pulse Ox O2 Delivery O2 Flow Rate FiO2 10/17/16 04:30 97.7 83 17 145/64 95 10/16/16 22:56 96.5 82 16 125/78 96 10/16/16 22:45 97.6 74 16 107/58 94 Room Air 10/16/16 22:00 72 16 105/57 93 Room Air 10/16/16 21:00 75 16 108/56 93 Room Air 10/16/16 20:00 78 16 115/60 92 Room Air 10/16/16 19:30 83 15 120/66 100 Nasal Cannula 2 10/16/16 19:00 97.5 80 15 135/59 99 Nasal Cannula 2 10/16/16 18:45 81 15 143/65 98 Nasal Cannula 2 10/16/16 18:35 15 10/16/16 18:30 80 15 154/68 100 Nasal Cannula 3 10/16/16 18:15 75 15 160/69 99 Nasal Cannula 3 10/16/16 18:00 78 15 165/69 98 Nasal Cannula 3 10/16/16 17:53 98.6 71 17 168/71 100 Nasal Cannula 4 10/16/16 11:00 98.2 73 16 165/65 99 Room Air 10/16/16 09:18 84 18 164/80 98 Room Air 10/16/16 09:14 12 I/O 10/16/16 10/16/16 10/16/16 10/17/16 10/17/16 10/17/16 07:00 15:00 23:00 07:00 15:00 23:00 Intake Total 1040 ml 120 ml Output Total 900 ml 600 ml Balance 140 ml -480 ml Intake Oral 240 ml 120 ml IV Total 100 ml Other 700 ml Output Urine Total 850 ml 600 ml Estimated Blood Loss 50 ml # Bowel Movements 0 Result Diagram: 10/17/16 0610/17/16 0623 Imaging Last Impressions Chest X-Ray 10/16/16 0304 Signed Impressions: Service Date/Time: Sunday, October 16, 2016 03:18 - CONCLUSION: 1. No acute pulmonary infiltrates 2. Moderate compensated cardiomegaly Kenny Salcido MD Lower Extremity Ultrasound 10/16/16 0000 Signed Impressions: Service Date/Time: Sunday, October 16, 2016 09:32 - CONCLUSION: 1. No evidence of deep venous thrombosis. Ismael Walker MD Hip and Pelvis X-Ray 10/16/16 0000 Signed Impressions: Service Date/Time: Sunday, October 16, 2016 03:18 - CONCLUSION: Oblique fracture through the trochanteric region of the proximal right femur. Kenny Salcido MD Hip X-Ray 10/16/16 0000 Signed Impressions: Service Date/Time: Sunday, October 16, 2016 17:27 - CONCLUSION: Status post open rigid internal fixation. Josiah Miller MD Objective Remarks awake and alert, oriented x 3, speech clear anicteric lungs no rales, no wheezes regular rhythm abdomen soft, nontender right hip- post op dressing in place moves toes and feet spontaneously, right LE- limited range of motion sensory intact Procedures 10/16- right hip hemiarthroplasty A/P Problem List: (1) Intertrochanteric fracture of right femur ICD Code: S72.141A Status: Acute (2) Fall ICD Code: W19.XXXA Status: Acute Assessment and Plan This is a 80 year old female patient who denies prior medical history. Patient reports she does not have a PCP and has no medial problems. Patient is here from [place] via a [address], reports she did take multiple stops denies calf pain, negative Pitts's sign. Patient had a fall two days ago reports she missed a step while taking groceries and. Patient did receive hit her head and required sutures to repair forehead laceration. Patient fell a second time today she slipped and fell on the tile floor after she came out of the bathroom. Patient reports she landed on her left side and subsequently was unable to stand or ambulate because of right hip pain. Fall with right intertrochanteric fracture S/P IMN and reduction 10/16 motivated with PT. prn pain meds Mild Leukocytosis WBC 12.0 possible reactive- afebrile, WBC down Pyuria on UA, C and S pending. Levaquin 500 mg po daily HYpokalemia- replace po DVT prophylaxis - Lovenox here. Xarelto on DC CM consult- DC planning- patient [facility] awaiting [facility] evaluation Problem Qualifiers (1) Intertrochanteric fracture of right femur: Qualified Code: S72.141A - Intertrochanteric fracture of right femur, closed, initial encounter (2) Fall: Qualified Code: W19.XXXA - Fall, initial encounter Kingston Lau MD Oct 17, 2016 07:57 Kingston Lau MD Oct 17, 2016 07:57
[2016-10-17] MEDS: CHOLECALCIFEROL (VIT D3) 5000 UNIT CAP PO SCH (08:47)
[2016-10-17] MEDS: CALCIUM/VITAMIN D 250 MG/125 U TAB PO SCH ×3 (08:48→17:05)
[2016-10-17] MEDS ORDERED: POTASSIUM CHLORIDE 10 MEQ CONTROLLED RELEASE TAB PO ONE (09:00)
[2016-10-17] MEDS: SODIUM CHLORIDE 0.9% FLUSH 5 ML FLUSH IVF SCH ×2 (09:00→20:01)
[2016-10-17] MEDS: LEVOFLOXACIN 500 MG TAB PO SCH (09:22)
[2016-10-17] MEDS: ENOXAPARIN SODIUM 30 MG/0.3 ML SYRINGE SQ SCH (17:07)
[2016-10-17] MEDS ORDERED: MAGNESIUM HYDROXIDE SUSP 30 ML CUP PO PRN (22:00)
[2016-10-18] VITALS (7 sets, daily range): BP systolic 124–169; BP diastolic 59–77; PULSE 80–99; RESP 15–20; TEMP 96.6–98; O2SAT 92–97
[2016-10-18] MEDS: ACETAMINOPHEN/HYDROcodone 325 MG/7.5 MG TAB PO PRN ×4 (04:38→21:00)
--- NOTE | 2016-10-18 06:46 | PD.ORT.PN ---
Subjective Subjective Remarks POD 2 s/p IMN right hip doing well. pain controlled. got out of bed yesterday Objective Vitals Vital Signs Date Time Temp Pulse Resp B/P Pulse Ox O2 Delivery O2 Flow Rate FiO2 10/18/16 05:57 138/59 10/18/16 04:35 97.0 99 15 169/77 97 10/18/16 00:30 97.8 85 15 124/61 95 10/17/16 20:01 85 10/17/16 19:45 98.5 98 16 135/65 92 10/17/16 15:41 99.6 90 20 134/74 96 10/17/16 12:00 98.1 88 16 113/55 95 10/17/16 09:50 16 10/17/16 09:25 65 10/17/16 08:00 98.6 83 16 120/63 95 I/O 10/17/16 10/17/16 10/17/16 10/18/16 10/18/16 10/18/16 07:00 15:00 23:00 07:00 15:00 23:00 Intake Total 356 ml 1040 ml 240 ml Output Total 600 ml Balance -244 ml 1040 ml 240 ml Intake Oral 120 ml 1040 ml 240 ml IV Total 236 ml Output Urine Total 600 ml # Voids 4 1 # Bowel Movements 0 0 1 Result Diagram: 10/17/1662210/17/16622 Objective Remarks RLE: dressings clean and dry.inact. NVI Assessment & Plan Assessment and Plan 1) Right Intertroch Fx s/p IMN - POD 2 -WBAT - daily dressing changes -CM for rehab placement -DVT prophylaxis with lovenox and transition to Xarelton on DC -F/U with Endy or JOO in 2 weeks Fuad Munoz Oct 18, 2016 06:46
--- NOTE | 2016-10-18 07:49 | HHI.PR ---
Subjective Remarks minimal pain " here and there" voiding spontaneously- denies any dysuria + BM this am Objective Vitals Vital Signs Date Time Temp Pulse Resp B/P Pulse Ox O2 Delivery O2 Flow Rate FiO2 10/18/16 05:57 138/59 10/18/16 04:35 97.0 99 15 169/77 97 10/18/16 00:30 97.8 85 15 124/61 95 10/17/16 20:01 85 10/17/16 19:45 98.5 98 16 135/65 92 10/17/16 15:41 99.6 90 20 134/74 96 10/17/16 12:00 98.1 88 16 113/55 95 10/17/16 09:50 16 10/17/16 09:25 65 10/17/16 08:00 98.6 83 16 120/63 95 I/O 10/17/16 10/17/16 10/17/16 10/18/16 10/18/16 10/18/16 07:00 15:00 23:00 07:00 15:00 23:00 Intake Total 356 ml 1040 ml 240 ml Output Total 600 ml Balance -244 ml 1040 ml 240 ml Intake Oral 120 ml 1040 ml 240 ml IV Total 236 ml Output Urine Total 600 ml # Voids 4 1 # Bowel Movements 0 0 1 Result Diagram: 10/17/16 0623 10/17/16 0623 Imaging Last Impressions Chest X-Ray 10/16/16 0304 Signed Impressions: Service Date/Time: Sunday, October 16, 2016 03:18 - CONCLUSION: 1. No acute pulmonary infiltrates 2. Moderate compensated cardiomegaly Kenny Salcido MD Lower Extremity Ultrasound 10/16/16 0000 Signed Impressions: Service Date/Time: Sunday, October 16, 2016 09:32 - CONCLUSION: 1. No evidence of deep venous thrombosis. Ismael Walker MD Hip and Pelvis X-Ray 10/16/16 0000 Signed Impressions: Service Date/Time: Sunday, October 16, 2016 03:18 - CONCLUSION: Oblique fracture through the trochanteric region of the proximal right femur. Kenny Salcido MD Hip X-Ray 10/16/16 0000 Signed Impressions: Service Date/Time: Sunday, October 16, 2016 17:27 - CONCLUSION: Status post open rigid internal fixation. Josiah Miller MD Objective Remarks awake and alert, oriented x 3, speech clear anicteric lungs no rales, no wheezes regular rhythm abdomen soft, nontender right hip- post op dressing in place moves LE spontaneously, good peripheral pulses right LE- better range of motion sensory intact Procedures 10/16- right hip hemiarthroplasty A/P Problem List: (1) Intertrochanteric fracture of right femur ICD Code: S72.141A Status: Acute (2) Fall ICD Code: W19.XXXA Status: Acute Assessment and Plan This is a 80 year old female patient who denies prior medical history. Patient reports she does not have a PCP and has no medial problems. Patient is here from [place] via a [address], reports she did take multiple stops denies calf pain, negative Pitts's sign. Patient had a fall two days ago reports she missed a step while taking groceries and. Patient did receive hit her head and required sutures to repair forehead laceration. Patient fell a second time today she slipped and fell on the tile floor after she came out of the bathroom. Patient reports she landed on her left side and subsequently was unable to stand or ambulate because of right hip pain. S/P Fall with right intertrochanteric fracture S/P IMN and reduction 10/16 motivated with PT. prn pain meds. PT daily Mild Leukocytosis WBC 12.0 possible reactive- afebrile, WBC down E coli UTI-. Levaquin 500 mg po daily HYpokalemia- replaced with po KCL. recheck today DVT prophylaxis - Lovenox here. Xarelto on DC CM consult- DC planning- patient here from [place] Problem Qualifiers (1) Intertrochanteric fracture of right femur: Qualified Code: S72.141A - Intertrochanteric fracture of right femur, closed, initial encounter (2) Fall: Qualified Code: W19.XXXA - Fall, initial encounter Kingston Lau MD Oct 18, 2016 07:49
[2016-10-18] MEDS: LEVOFLOXACIN 500 MG TAB PO SCH (08:10)
[2016-10-18] MEDS: CHOLECALCIFEROL (VIT D3) 5000 UNIT CAP PO SCH (08:10)
[2016-10-18] MEDS: CALCIUM/VITAMIN D 250 MG/125 U TAB PO SCH ×3 (08:10→17:32)
[2016-10-18] MEDS: SODIUM CHLORIDE 0.9% FLUSH 5 ML FLUSH IVF SCH ×2 (08:14→20:06)
[2016-10-18 10:06] LABS: BICARBONATE 28.8 MEQ/L (21.0-32.0); POTASSIUM 3.7 MEQ/L (3.5-5.1)
[2016-10-18] MEDS: ENOXAPARIN SODIUM 30 MG/0.3 ML SYRINGE SQ SCH (17:32)
[2016-10-19] VITALS (7 sets, daily range): BP systolic 135–173; BP diastolic 60–79; PULSE 67–95; RESP 16–17; TEMP 96.2–99; O2SAT 93–99
[2016-10-19] MEDS: ACETAMINOPHEN/HYDROcodone 325 MG/7.5 MG TAB PO PRN ×3 (03:42→20:20)
[2016-10-19] MEDS: CHOLECALCIFEROL (VIT D3) 5000 UNIT CAP PO SCH (08:13)
[2016-10-19] MEDS: CALCIUM/VITAMIN D 250 MG/125 U TAB PO SCH ×3 (08:13→17:48)
[2016-10-19] MEDS: LEVOFLOXACIN 500 MG TAB PO SCH (08:13)
[2016-10-19] MEDS: SODIUM CHLORIDE 0.9% FLUSH 5 ML FLUSH IVF SCH ×2 (08:14→20:21)
--- NOTE | 2016-10-19 09:38 | HHI.PR ---
Subjective Remarks patient already up ambulating with PT- with a walker- very motivated no dysuria or burning Objective Vitals Vital Signs Date Time Temp Pulse Resp B/P Pulse Ox O2 Delivery O2 Flow Rate FiO2 10/19/16 07:29 96.3 82 17 165/75 93 10/19/16 04:11 97.5 84 17 146/79 98 10/19/16 00:00 99.0 78 16 135/67 96 10/18/16 20:00 96.6 86 18 150/72 94 10/18/16 16:00 98.0 80 18 140/68 95 10/18/16 12:00 97.8 80 19 132/70 94 I/O 10/18/16 10/18/16 10/18/16 10/19/16 10/19/16 10/19/16 07:00 15:00 23:00 07:00 15:00 23:00 Intake Total 240 ml 720 ml 360 ml 240 ml Balance 240 ml 720 ml 360 ml 240 ml Intake Oral 240 ml 720 ml 360 ml 240 ml # Voids 1 3 1 1 # Bowel Movements 1 Result Diagram: 10/17/16 0623 10/18/16 0905 Imaging Last Impressions Chest X-Ray 10/16/16 0304 Signed Impressions: Service Date/Time: Sunday, October 16, 2016 03:18 - CONCLUSION: 1. No acute pulmonary infiltrates 2. Moderate compensated cardiomegaly Kenny Salcido MD Lower Extremity Ultrasound 10/16/16 0000 Signed Impressions: Service Date/Time: Sunday, October 16, 2016 09:32 - CONCLUSION: 1. No evidence of deep venous thrombosis. Ismael Walker MD Hip and Pelvis X-Ray 10/16/16 0000 Signed Impressions: Service Date/Time: Sunday, October 16, 2016 03:18 - CONCLUSION: Oblique fracture through the trochanteric region of the proximal right femur. Kenny Salcido MD Hip X-Ray 10/16/16 0000 Signed Impressions: Service Date/Time: Sunday, October 16, 2016 17:27 - CONCLUSION: Status post open rigid internal fixation. Josiah Miller MD Objective Remarks awake and alert, oriented x 3, speech clear anicteric lungs no rales, no wheezes regular rhythm abdomen soft, nontender right hip- post op dressing in place moves LE spontaneously, good peripheral pulses sensory intact Procedures 10/16- right hip hemiarthroplasty A/P Problem List: (1) Intertrochanteric fracture of right femur ICD Code: S72.141A Status: Acute (2) Fall ICD Code: W19.XXXA Status: Acute Assessment and Plan This is a 80 year old female patient who denies prior medical history. Patient reports she does not have a PCP and has no medial problems. Patient is here from [place] via a [address], reports she did take multiple stops denies calf pain, negative Pitts's sign. Patient had a fall two days ago reports she missed a step while taking groceries and. Patient did receive hit her head and required sutures to repair forehead laceration. Patient fell a second time today she slipped and fell on the tile floor after she came out of the bathroom. Patient reports she landed on her left side and subsequently was unable to stand or ambulate because of right hip pain. S/P Fall with right intertrochanteric fracture S/P IMN and reduction 10/16 motivated with PT.- doing great. prn pain meds. Mild Leukocytosis WBC 12.0 possible reactive- afebrile, WBC down E coli UTI-. Levaquin 500 mg po daily started 11/16 HYpokalemia- replaced with po KCL.corrected DVT prophylaxis - Lovenox here. Xarelto on DC CM consult- DC planning- patient here from [place] per staff nurse who spoke with Ortho- DC Saturday DC planning- home with home PT Problem Qualifiers (1) Intertrochanteric fracture of right femur: Qualified Code: S72.141A - Intertrochanteric fracture of right femur, closed, initial encounter (2) Fall: Qualified Code: W19.XXXA - Fall, initial encounter Kingston Lau MD Oct 19, 2016 09:38
[2016-10-19] MEDS: ENOXAPARIN SODIUM 30 MG/0.3 ML SYRINGE SQ SCH (17:48)
[2016-10-20] VITALS (8 sets, daily range): BP systolic 150–195; BP diastolic 53–77; PULSE 73–89; RESP 17–18; TEMP 96.6–98.9; O2SAT 95–97
[2016-10-20] MEDS: ACETAMINOPHEN/HYDROcodone 325 MG/7.5 MG TAB PO PRN ×3 (04:56→20:25)
[2016-10-20] MEDS ORDERED: ENALAPRILAT 1.25 MG/ML VIAL IV PUSH PRN (06:15)
--- NOTE | 2016-10-20 08:48 | HHI.PR ---
Subjective Remarks Status post fall with secondary Right Intertrochanteric Hip fracture and Surgery. stable asking to be removed her stitches from her frontal area performed, no nausea, vomit or diarrhea as per Orthopedic surgery to discharge next Saturday10/22/16 Objective Vital Signs Date Time Temp Pulse Resp B/P Pulse Ox O2 Delivery O2 Flow Rate FiO2 10/20/16 07:18 96.6 76 17 180/77 96 10/20/16 04:00 97.2 73 18 175/76 97 10/20/16 00:18 98.1 89 10/19/16 20:40 98.1 89 16 171/77 99 10/19/16 20:20 67 10/19/16 15:49 96.2 95 17 173/76 94 10/19/16 11:20 97.1 78 17 139/60 95 I/O 10/19/16 10/19/16 10/19/16 10/20/16 10/20/16 10/20/16 07:00 15:00 23:00 07:00 15:00 23:00 Intake Total 240 ml 480 ml Balance 240 ml 480 ml Intake Oral 240 ml 480 ml # Voids 1 3 # Bowel Movements 0 Result Diagram: 10/17/16 0623 10/18/16 0905 Imaging Last Impressions Chest X-Ray 10/16/16 0304 Signed Impressions: Service Date/Time: Sunday, October 16, 2016 03:18 - CONCLUSION: 1. No acute pulmonary infiltrates 2. Moderate compensated cardiomegaly Kenny Salcido MD Lower Extremity Ultrasound 10/16/16 0000 Signed Impressions: Service Date/Time: Sunday, October 16, 2016 09:32 - CONCLUSION: 1. No evidence of deep venous thrombosis. Ismael Walker MD Hip and Pelvis X-Ray 10/16/16 0000 Signed Impressions: Service Date/Time: Sunday, October 16, 2016 03:18 - CONCLUSION: Oblique fracture through the trochanteric region of the proximal right femur. Kenny Salcido MD Hip X-Ray 10/16/16 0000 Signed Impressions: Service Date/Time: Sunday, October 16, 2016 17:27 - CONCLUSION: Status post open rigid internal fixation. Josiah Miller MD Procedures 10/16- right hip hemiarthroplasty Other Results Laboratory Tests Test 10/16/16 10/16/16 10/16/16 10/17/16 04:00 07:00 12:15 06:23 Red Cell Morphology Comment NORMAL Prothrombin Time 11.5 SEC Prothromb Time International 1.0 RATIO Ratio 25-Hydroxy Vitamin D Total 5.4 ng/ML Urine Color YELLOW Urine Turbidity HAZY Urine pH 6.0 Urine Specific [place] 1.019 Urine Protein NEG mg/dL Urine Glucose (UA) NEG mg/dL Urine Ketones 80 mg/dL Urine Occult Blood TRACE Urine Nitrite NEG Urine Bilirubin NEG Urine Urobilinogen 2.0 MG/DL Urine Leukocyte Esterase SMALL Urine RBC 2 /hpf Urine WBC 6 /hpf Urine Squamous Epithelial 1 /hpf Cells Urine Bacteria MOD /hpf Urine Mucus FEW /lpf Microscopic Urinalysis Comment CATH-CULTURE IND Blood Type A NEGATIVE Antibody Screen NEGATIVE Blood Bank Comment White Blood Count 7.5 TH/MM3 Red Blood Count 3.66 MIL/MM3 Hemoglobin 10.9 GM/DL Hematocrit 32.5 % Mean Corpuscular Volume 89.0 FL Mean Corpuscular Hemoglobin 29.9 PG Mean Corpuscular Hemoglobin 33.7 % Concent Red Cell Distribution Width 13.5 % Platelet Count 149 TH/MM3 Mean Platelet Volume 8.9 FL Neutrophils (%) (Auto) 76.9 % Lymphocytes (%) (Auto) 13.5 % Monocytes (%) (Auto) 8.3 % Eosinophils (%) (Auto) 1.0 % Basophils (%) (Auto) 0.3 % Neutrophils # (Auto) 5.8 TH/MM3 Lymphocytes # (Auto) 1.0 TH/MM3 Monocytes # (Auto) 0.6 TH/MM3 Eosinophils # (Auto) 0.1 TH/MM3 Basophils # (Auto) 0.0 TH/MM3 CBC Comment DIFF FINAL Differential Comment Test 10/18/16 09:05 Sodium Level 138 MEQ/L Potassium Level 3.7 MEQ/L Chloride Level 103 MEQ/L Carbon Dioxide Level 28.8 MEQ/L Anion Gap 6 MEQ/L Blood Urea Nitrogen 9 MG/DL Creatinine 0.44 MG/DL Estimat Glomerular Filtration 138 ML/MIN Rate Random Glucose 120 MG/DL Calcium Level 8.0 MG/DL Objective Remarks GENERAL: No acute distress. SKIN: Warm and dry. HEAD: Atraumatic. Normocephalic. EYES: Pupils equal and round. No scleral icterus. No injection or drainage. ENT: No nasal bleeding or discharge. Mucous membranes pink and moist. NECK: Trachea midline. No JVD. CARDIOVASCULAR: Regular rate and rhythm. RESPIRATORY: No accessory muscle use. Clear to auscultation. Breath sounds equal bilaterally. GASTROINTESTINAL: Abdomen soft, non-tender, nondistended. Hepatic and splenic margins not palpable. MUSCULOSKELETAL: Extremities without clubbing, cyanosis, or edema. No obvious deformities. NEUROLOGICAL: Awake and alert. No obvious cranial nerve deficits. Motor grossly within normal limits. Five out of 5 muscle strength in the arms and legs. Normal speech. PSYCHIATRIC: Appropriate mood and affect; insight and judgment normal. Medications and IVs Current Medications Medications (Trade) Dose Ordered Sig/Enrique Route Start Time Stop Time Status Last Admin (Narcan Inj) 0.4 mg UNSCH PRN IV 10/16/16 04:15 (Morphine Inj) 2 mg Q3H PRN IV PUSH 10/16/16 04:15 10/16/16 07:01 (NS Flush) 2 ml UNSCH PRN IVF 10/16/16 17:45 (NS Flush) 2 ml BID IVF 10/16/16 21:00 10/19/16 20:21 (Lovenox Inj) 30 mg Q24H SQ 10/17/16 17:00 10/19/16 17:48 (Zofran Inj) 4 mg Q4H PRN IVP 10/16/16 17:45 (Oscal-D 250-125) 250 mg TID PO 10/16/16 18:00 10/19/16 17:48 (Benadryl) 25 mg Q6H PRN PO 10/16/16 17:45 ([place] 7.5-325 Mg) 1 tab Q3H PRN PO 10/16/16 17:45 10/20/16 04:56 ([place] 7.5-325 Mg) 2 tab Q6H PRN PO 10/16/16 17:45 (Morphine Inj) 3 mg Q3H PRN IV PUSH 10/16/16 17:45 (Vitamin D3) 5,000 units DAILY PO 10/17/16 09:00 10/19/16 08:13 (Levaquin) 500 mg DAILY PO 10/17/16 09:00 10/19/16 08:13 (Milk Of Magnesia Liq) 30 ml Q12H PRN PO 10/17/16 22:00 10/18/16 04:38 (Vasotec Inj) 1.25 mg Q6H PRN IV PUSH 10/20/16 06:15 A/P Assessment and Plan (1) Intertrochanteric fracture of right femur ICD Code: S72.141A Status: Acute (2) Fall ICD Code: W19.XXXA 1. Status post Fall with Right Intertrochanteric fracture, status post IMN and reduction 10/16 continue PT, pain controlled. 2. UTI secondary to E Coli on Levaquin 500 mg daily started 11/16 DVT prophylaxis - Lovenox here. Xarelto on DC CM consult- [facility] who spoke with Ortho- DC Saturday DC planning- home with home PT Discharge Planning Expected for 10/22/16 Sadiq Martinez MD Oct 20, 2016 08:48
[2016-10-20] MEDS: CHOLECALCIFEROL (VIT D3) 5000 UNIT CAP PO SCH (09:00)
[2016-10-20] MEDS: LEVOFLOXACIN 500 MG TAB PO SCH (09:57)
[2016-10-20] MEDS: CALCIUM/VITAMIN D 250 MG/125 U TAB PO SCH ×3 (09:57→17:50)
[2016-10-20] MEDS: SODIUM CHLORIDE 0.9% FLUSH 5 ML FLUSH IVF SCH ×2 (09:57→20:25)
[2016-10-20] MEDS: ENOXAPARIN SODIUM 30 MG/0.3 ML SYRINGE SQ SCH (17:50)
[2016-10-21 00:21] VITALS: BP 120/61; PULSE 71; RESP 17; TEMP 97.7; O2SAT 98
[2016-10-21 03:38] VITALS: BP 129/61; PULSE 72; RESP 16; TEMP 96.6; O2SAT 99
[2016-10-21] MEDS: ACETAMINOPHEN/HYDROcodone 325 MG/7.5 MG TAB PO PRN ×3 (05:51→22:20)
[2016-10-21 08:00] VITALS: BP 142/63; PULSE 72; RESP 16; TEMP 96.6; O2SAT 97
[2016-10-21] MEDS: CHOLECALCIFEROL (VIT D3) 5000 UNIT CAP PO SCH (08:39)
[2016-10-21] MEDS: CALCIUM/VITAMIN D 250 MG/125 U TAB PO SCH ×3 (08:39→16:52)
[2016-10-21] MEDS: LEVOFLOXACIN 500 MG TAB PO SCH (08:39)
[2016-10-21] MEDS: SODIUM CHLORIDE 0.9% FLUSH 5 ML FLUSH IVF SCH ×2 (08:42→21:00)
[2016-10-21 12:00] VITALS: BP 152/66; PULSE 77; RESP 16; TEMP 97.2; O2SAT 96
--- NOTE | 2016-10-21 12:10 | HHI.PR ---
Subjective Remarks Status post fall with secondary Right Intertrochanteric Hip fracture and Surgery. stable asking to be removed her stitches from her frontal area performed, as per Orthopedic surgery to discharge next Saturday10/22/1610/21: No nausea, vomit or diarrhea, discussed with patient and nurse Miss Mckeon stable following no complaint. Objective Vital Signs Date Time Temp Pulse Resp B/P Pulse Ox O2 Delivery O2 Flow Rate FiO2 10/21/16 08:00 96.6 72 16 142/63 97 10/21/16 03:38 96.6 72 16 129/61 99 10/21/16 00:21 97.7 71 17 120/61 98 10/20/16 19:48 76 10/20/16 19:28 98.7 78 17 150/53 95 10/20/16 16:27 16 10/20/16 15:58 98.0 87 17 165/67 96 10/20/16 13:47 166/58 I/O 10/20/16 10/20/16 10/20/16 10/21/16 10/21/16 10/21/16 06:59 14:59 22:59 06:59 14:59 22:59 Intake Total 480 ml 360 ml 120 ml Balance 480 ml 360 ml 120 ml Intake Oral 480 ml 360 ml 120 ml # Voids 3 2 0 # Bowel Movements 0 1 0 Result Diagram: 10/17/16 0623 10/18/16 0905 Imaging Last Impressions Chest X-Ray 10/16/16 0304 Signed Impressions: Service Date/Time: Sunday, October 16, 2016 03:18 - CONCLUSION: 1. No acute pulmonary infiltrates 2. Moderate compensated cardiomegaly Kenny Salcido MD Lower Extremity Ultrasound 10/16/16 0000 Signed Impressions: Service Date/Time: Sunday, October 16, 2016 09:32 - CONCLUSION: 1. No evidence of deep venous thrombosis. Ismael Walker MD Hip and Pelvis X-Ray 10/16/16 0000 Signed Impressions: Service Date/Time: Sunday, October 16, 2016 03:18 - CONCLUSION: Oblique fracture through the trochanteric region of the proximal right femur. Kenny Salcido MD Hip X-Ray 10/16/16 0000 Signed Impressions: Service Date/Time: Sunday, October 16, 2016 17:27 - CONCLUSION: Status post open rigid internal fixation. Josiah Miller MD Procedures 10/16- right hip hemiarthroplasty Other Results Laboratory Tests Test 10/16/16 10/17/16 10/18/16 07:00 06:23 09:05 Urine Color YELLOW Urine Turbidity HAZY Urine pH 6.0 Urine Specific [place] 1.019 Urine Protein NEG mg/dL Urine Glucose (UA) NEG mg/dL Urine Ketones 80 mg/dL Urine Occult Blood TRACE Urine Nitrite NEG Urine Bilirubin NEG Urine Urobilinogen 2.0 MG/DL Urine Leukocyte Esterase SMALL Urine RBC 2 /hpf Urine WBC 6 /hpf Urine Squamous Epithelial 1 /hpf Cells Urine Bacteria MOD /hpf Urine Mucus FEW /lpf Microscopic Urinalysis Comment CATH-CULTURE IND White Blood Count 7.5 TH/MM3 Red Blood Count 3.66 MIL/MM3 Hemoglobin 10.9 GM/DL Hematocrit 32.5 % Mean Corpuscular Volume 89.0 FL Mean Corpuscular Hemoglobin 29.9 PG Mean Corpuscular Hemoglobin 33.7 % Concent Red Cell Distribution Width 13.5 % Platelet Count 149 TH/MM3 Mean Platelet Volume 8.9 FL Neutrophils (%) (Auto) 76.9 % Lymphocytes (%) (Auto) 13.5 % Monocytes (%) (Auto) 8.3 % Eosinophils (%) (Auto) 1.0 % Basophils (%) (Auto) 0.3 % Neutrophils # (Auto) 5.8 TH/MM3 Lymphocytes # (Auto) 1.0 TH/MM3 Monocytes # (Auto) 0.6 TH/MM3 Eosinophils # (Auto) 0.1 TH/MM3 Basophils # (Auto) 0.0 TH/MM3 CBC Comment DIFF FINAL Differential Comment Sodium Level 138 MEQ/L Potassium Level 3.7 MEQ/L Chloride Level 103 MEQ/L Carbon Dioxide Level 28.8 MEQ/L Anion Gap 6 MEQ/L Blood Urea Nitrogen 9 MG/DL Creatinine 0.44 MG/DL Estimat Glomerular Filtration 138 ML/MIN Rate Random Glucose 120 MG/DL Calcium Level 8.0 MG/DL Objective Remarks GENERAL: No acute distress. SKIN: Warm and dry. HEAD: Atraumatic. Normocephalic. EYES: Pupils equal and round. No scleral icterus. No injection or drainage. ENT: No nasal bleeding or discharge. Mucous membranes pink and moist. NECK: Trachea midline. No JVD. CARDIOVASCULAR: Regular rate and rhythm. RESPIRATORY: No accessory muscle use. Clear to auscultation. Breath sounds equal bilaterally. GASTROINTESTINAL: Abdomen soft, non-tender, nondistended. Hepatic and splenic margins not palpable. MUSCULOSKELETAL: Right Hip dressed. clean surgical wound. NEUROLOGICAL: Awake and alert. No obvious cranial nerve deficits. PSYCHIATRIC: Appropriate mood and affect; insight and judgment normal. Medications and IVs Current Medications Medications (Trade) Dose Ordered Sig/Enrique Route Start Time Stop Time Status Last Admin (Narcan Inj) 0.4 mg UNSCH PRN IV 10/16/16 04:15 (Morphine Inj) 2 mg Q3H PRN IV PUSH 10/16/16 04:15 10/16/16 07:01 (NS Flush) 2 ml UNSCH PRN IVF 10/16/16 17:45 (NS Flush) 2 ml BID IVF 10/16/16 21:00 10/21/16 08:42 (Lovenox Inj) 30 mg Q24H SQ 10/17/16 17:00 10/20/16 17:50 (Zofran Inj) 4 mg Q4H PRN IVP 10/16/16 17:45 (Oscal-D 250-125) 250 mg TID PO 10/16/16 18:00 10/21/16 08:39 (Benadryl) 25 mg Q6H PRN PO 10/16/16 17:45 ([place] 7.5-325 Mg) 1 tab Q3H PRN PO 10/16/16 17:45 10/21/16 05:51 ([place] 7.5-325 Mg) 2 tab Q6H PRN PO 10/16/16 17:45 (Morphine Inj) 3 mg Q3H PRN IV PUSH 10/16/16 17:45 (Vitamin D3) 5,000 units DAILY PO 10/17/16 09:00 10/21/16 08:39 (Levaquin) 500 mg DAILY PO 10/17/16 09:00 10/21/16 08:39 (Milk Of Magnesia Liq) 30 ml Q12H PRN PO 10/17/16 22:00 10/18/16 04:38 (Vasotec Inj) 1.25 mg Q6H PRN IV PUSH 10/20/16 06:15 10/20/16 11:09 A/P Assessment and Plan (1) Intertrochanteric fracture of right femur ICD Code: S72.141A Status: Acute (2) Fall ICD Code: W19.XXXA 1. Status post Fall with Right Intertrochanteric fracture, status post IMN and reduction 10/16 continue PT, pain controlled. 2. UTI secondary to E Coli on Levaquin 500 mg daily started 11/16 DVT prophylaxis - Lovenox here. Xarelto on DC CM consult- [facility] planning[facility] who spoke with Ortho- DC Saturday DC planning- home with home PT Discharge Planning Expected for 10/22/16 Sadiq Martinez MD Oct 21, 2016 12:10 Sadiq Martinez MD Oct 21, 2016 12:10
[2016-10-21 16:00] VITALS: BP 142/64; PULSE 70; RESP 16; TEMP 97.9; O2SAT 96
[2016-10-21] MEDS: ENOXAPARIN SODIUM 30 MG/0.3 ML SYRINGE SQ SCH (16:51)
[2016-10-21 20:00] VITALS: BP 166/79; PULSE 81; RESP 18; TEMP 97.6; O2SAT 95
[2016-10-22] VITALS: BP 137/70; PULSE 81; RESP 17; TEMP 96.6; O2SAT 97
[2016-10-22 04:00] VITALS: BP 151/71; PULSE 68; RESP 17; TEMP 96; O2SAT 98
--- NOTE | 2016-10-22 06:46 | PD.ORT.PN ---
Subjective Subjective Remarks Sujey is awake and alert. She appears comfortable. She is progressing well with physical therapy Objective Vitals Vital Signs Date Time Temp Pulse Resp B/P Pulse Ox O2 Delivery O2 Flow Rate FiO2 10/22/16 04:00 96.0 68 17 151/71 98 10/22/16 00:00 96.6 81 17 137/70 97 10/21/16 20:00 97.6 81 18 166/79 95 10/21/16 16:00 97.9 70 16 142/64 96 10/21/16 12:00 97.2 77 16 152/66 96 10/21/16 08:00 96.6 72 16 142/63 97 I/O 10/21/16 10/21/16 10/21/16 10/22/16 10/22/16 10/22/16 07:00 15:00 23:00 07:00 15:00 23:00 Intake Total 120 ml 480 ml 240 ml Balance 120 ml 480 ml 240 ml Intake Oral 120 ml 480 ml 240 ml # Voids 0 4 1 # Bowel Movements 0 0 0 Result Diagram: 10/18/16 0905 Objective Remarks RLE: dressings clean and dry.inact. NVI. No calf tenderness. Assessment & Plan Assessment and Plan 1) Right Intertroch Fx s/p IMN - -WBAT - daily dressing changes -Discharged home today. Patient heading back home to [place]. Follow- up with orthopedic surgeon at home in 7-10 days -DVT prophylaxis with lovenox and transition to Xarelton on DC Jeremy Schumacher MD October 22, 2016 06:46
[2016-10-22 08:00] VITALS: BP 163/86; PULSE 74; RESP 18; TEMP 97.6; O2SAT 98
[2016-10-22] MEDS: LEVOFLOXACIN 500 MG TAB PO SCH (08:15)
[2016-10-22] MEDS: CALCIUM/VITAMIN D 250 MG/125 U TAB PO SCH ×2 (08:15→13:02)
[2016-10-22] MEDS: ACETAMINOPHEN/HYDROcodone 325 MG/7.5 MG TAB PO PRN ×2 (08:15→13:12)
[2016-10-22] MEDS: CHOLECALCIFEROL (VIT D3) 5000 UNIT CAP PO SCH (08:17)
[2016-10-22] MEDS: SODIUM CHLORIDE 0.9% FLUSH 5 ML FLUSH IVF SCH (08:17)
--- NOTE | 2016-10-22 09:16 | HHI.PR ---
Subjective Remarks Status post fall with secondary Right Intertrochanteric Hip fracture and Surgery. stable asking to be removed her stitches from her frontal area performed, as per Orthopedic surgery to discharge next Saturday10/22/1610/22: Seen in her bedroom and discussed with nurse Miss Quiñones, no Nausea, vomit or diarrhea, has intermittent elevated blood pressure on no anti hypertensives, not safe to give anti hypertensive at this time, discussed with Targeting Acquisition Officer Miss Vaughan and with her Daughter Mrs. Miky Dailey to the phone number [phone] Orthopedic Surgery aware of the possible travel of the patient by ground transportation on 10/25/16 to [place]. Objective Vital Signs Date Time Temp Pulse Resp B/P Pulse Ox O2 Delivery O2 Flow Rate FiO2 10/22/16 08:00 97.6 74 18 163/86 98 10/22/16 04:00 96.0 68 17 151/71 98 10/22/16 00:00 96.6 81 17 137/70 97 10/21/16 20:00 97.6 81 18 166/79 95 10/21/16 16:00 97.9 70 16 142/64 96 10/21/16 12:00 97.2 77 16 152/66 96 I/O 10/21/16 10/21/16 10/21/16 10/22/16 10/22/16 10/22/16 07:00 15:00 23:00 07:00 15:00 23:00 Intake Total 120 ml 480 ml 240 ml 120 ml Balance 120 ml 480 ml 240 ml 120 ml Intake Oral 120 ml 480 ml 240 ml 120 ml # Voids 0 4 1 1 # Bowel Movements 0 0 0 0 Result Diagram: 10/18/16 0905 Imaging Last Impressions Chest X-Ray 10/16/16 0304 Signed Impressions: Service Date/Time: Sunday, October 16, 2016 03:18 - CONCLUSION: 1. No acute pulmonary infiltrates 2. Moderate compensated cardiomegaly Kenny Salcido MD Lower Extremity Ultrasound 10/16/16 0000 Signed Impressions: Service Date/Time: Sunday, October 16, 2016 09:32 - CONCLUSION: 1. No evidence of deep venous thrombosis. Ismael Walker MD Hip and Pelvis X-Ray 10/16/16 0000 Signed Impressions: Service Date/Time: Sunday, October 16, 2016 03:18 - CONCLUSION: Oblique fracture through the trochanteric region of the proximal right femur. Kenny Salcido MD Hip X-Ray 10/16/16 0000 Signed Impressions: Service Date/Time: Sunday, October 16, 2016 17:27 - CONCLUSION: Status post open rigid internal fixation. Josiah Miller MD Procedures 10/16- right hip hemiarthroplasty Other Results Laboratory Tests Test 10/18/16 09:05 Sodium Level 138 MEQ/L Potassium Level 3.7 MEQ/L Chloride Level 103 MEQ/L Carbon Dioxide Level 28.8 MEQ/L Anion Gap 6 MEQ/L Blood Urea Nitrogen 9 MG/DL Creatinine 0.44 MG/DL Estimat Glomerular Filtration 138 ML/MIN Rate Random Glucose 120 MG/DL Calcium Level 8.0 MG/DL Objective Remarks GENERAL: No acute distress. SKIN: Warm and dry. HEAD: Atraumatic. Normocephalic. EYES: Pupils equal and round. No scleral icterus. No injection or drainage. ENT: No nasal bleeding or discharge. Mucous membranes pink and moist. NECK: Trachea midline. No JVD. CARDIOVASCULAR: Regular rate and rhythm. RESPIRATORY: No accessory muscle use. Clear to auscultation. Breath sounds equal bilaterally. GASTROINTESTINAL: Abdomen soft, non-tender, nondistended. Hepatic and splenic margins not palpable. MUSCULOSKELETAL: Right Hip dressed. clean surgical wound. NEUROLOGICAL: Awake and alert. No obvious cranial nerve deficits. PSYCHIATRIC: Appropriate mood and affect; insight and judgment normal. Medications and IVs Current Medications Medications (Trade) Dose Ordered Sig/Enrique Route Start Time Stop Time Status Last Admin (Narcan Inj) 0.4 mg UNSCH PRN IV 10/16/16 04:15 (Morphine Inj) 2 mg Q3H PRN IV PUSH 10/16/16 04:15 10/16/16 07:01 (NS Flush) 2 ml UNSCH PRN IVF 10/16/16 17:45 (NS Flush) 2 ml BID IVF 10/16/16 21:00 10/22/16 08:17 (Lovenox Inj) 30 mg Q24H SQ 10/17/16 17:00 10/21/16 16:51 (Zofran Inj) 4 mg Q4H PRN IVP 10/16/16 17:45 (Oscal-D 250-125) 250 mg TID PO 10/16/16 18:00 10/22/16 08:15 (Benadryl) 25 mg Q6H PRN PO 10/16/16 17:45 ([place] 7.5-325 Mg) 1 tab Q3H PRN PO 10/16/16 17:45 10/22/16 08:15 ([place] 7.5-325 Mg) 2 tab Q6H PRN PO 10/16/16 17:45 (Morphine Inj) 3 mg Q3H PRN IV PUSH 10/16/16 17:45 (Vitamin D3) 5,000 units DAILY PO 10/17/16 09:00 10/22/16 08:17 (Levaquin) 500 mg DAILY PO 10/17/16 09:00 10/22/16 08:15 (Milk Of [place]) 30 ml Q12H PRN PO 10/17/16 22:00 10/18/16 04:38 (Vasotec Inj) 1.25 mg Q6H PRN IV PUSH 10/20/16 06:15 10/20/16 11:09 A/P Assessment and Plan (1) Intertrochanteric fracture of right femur ICD Code: S72.141A Status: Acute (2) Fall ICD Code: W19.XXXA 1. Status post Fall with Right Intertrochanteric fracture, status post IMN and reduction 10/16 continue PT, pain controlled. Orthopedic Surgery okay to discharge home on [facility] for PT and Skilled nurse. 2. UTI secondary to E Coli on Levaquin 500 mg daily started 11/16, no need for further management. No need for anti hypertensive has intermittent blood pressure increases. DVT prophylaxis - Lovenox here. Xarelto on DC CM consult- DC planning- patient here from [place] per staff nurse who spoke with Ortho- DC today. DC planning- home with home PT Discussed with Patient and nurse Miss Quiñones,with Targeting Acquisition Officer Miss Vaughan and with her Daughter Mrs. Miky Dailey to the phone number [phone] Orthopedic Surgery aware of the possible travel of the patient by ground transportation on 10/25/16 to [place]. Discharge Planning Discharge Home with [facility]. Sadiq Martinez MD October 22, 2016 09:16
--- NOTE | 2016-10-22 10:07 | HHI.DS ---
Discharge Summary Admission Date Oct 16, 2016 at 04:08 Discharge Date: October 22, 2016 Admitting Diagnosis fall, hip fracture (1) Intertrochanteric fracture of right femur ICD Code: S72.141A Diagnosis: Principal (2) Fall ICD Code: W19.XXXA Diagnosis: Principal Procedures 10/16- right hip hemiarthroplasty Brief History - From Admission This is a 80 year old female patient who denies prior medical history. Patient reports she does not have a PCP and has no medial problems. Patient is here from [place] via a [address], reports she did take multiple stops denies calf pain. Patient had a fall two days ago reports she missed a step while taking groceries and. Patient did receive hit her head and required sutures to repair forehead laceration. Patient fell a second time today she slipped and fell on the tile floor after she came out of the bathroom. Patient reports she landed on her left side and subsequently was unable to stand or ambulate because of right hip pain. Patient reports the pain has improved after she was given morphine IV in the emergency department. Patient reports pain is worse with movement or weightbearing. Patient described the initial pain as severe and located in right hip area. Prior to fall patient denies shortness of breath feeling dizzy , lightheaded, palpitations, chest pain or presyncopal aura. Patient denies head trauma or loss of consciousness during this fall. Patient reports prior to coming down to [place] she was in her normal state of health. Denies nausea , vomiting, diarrhea, constipation, fevers or chills. CBC/BMP: 10/18/16 0905 Imaging Last Impressions Chest X-Ray 10/16/16 0304 Signed Impressions: Service Date/Time: Sunday, October 16, 2016 03:18 - CONCLUSION: 1. No acute pulmonary infiltrates 2. Moderate compensated cardiomegaly Kenny Salcido MD Lower Extremity Ultrasound 10/16/16 0000 Signed Impressions: Service Date/Time: Sunday, October 16, 2016 09:32 - CONCLUSION: 1. No evidence of deep venous thrombosis. Ismael Walker MD Hip and Pelvis X-Ray 10/16/16 0000 Signed Impressions: Service Date/Time: Sunday, October 16, 2016 03:18 - CONCLUSION: Oblique fracture through the trochanteric region of the proximal right femur. Kenny Salcido MD Hip X-Ray 10/16/16 0000 Signed Impressions: Service Date/Time: Sunday, October 16, 2016 17:27 - CONCLUSION: Status post open rigid internal fixation. Josiah Miller MD PE at Discharge GENERAL: No acute distress. SKIN: Warm and dry. HEAD: Atraumatic. Normocephalic. EYES: Pupils equal and round. No scleral icterus. No injection or drainage. ENT: No nasal bleeding or discharge. Mucous membranes pink and moist. NECK: Trachea midline. No JVD. CARDIOVASCULAR: Regular rate and rhythm. RESPIRATORY: No accessory muscle use. Clear to auscultation. Breath sounds equal bilaterally. GASTROINTESTINAL: Abdomen soft, non-tender, nondistended. Hepatic and splenic margins not palpable. MUSCULOSKELETAL: Right Hip dressed. clean surgical wound. NEUROLOGICAL: Awake and alert. No obvious cranial nerve deficits. PSYCHIATRIC: Appropriate mood and affect; insight and judgment normal. Hospital Course Status post fall with secondary Right Intertrochanteric Hip fracture and Surgery. stable asking to be removed her stitches from her frontal area performed, as per Orthopedic surgery to discharge next Saturday10/22/1610/22: Seen in her bedroom and discussed with nurse Miss Quiñones, no Nausea, vomit or diarrhea, has intermittent elevated blood pressure on no anti hypertensives, not safe to give anti hypertensive at this time, discussed with Team Psychologist Miss Vaughan and with her Daughter Mrs. Miky Dailey to the phone number [phone] Orthopedic Surgery aware of the possible travel of the patient by ground transportation on 10/25/16 to [place]. Assessment and Plan 1. Status post Fall with Right Intertrochanteric fracture, status post IMN and reduction 10/16 continue PT, pain controlled. Orthopedic Surgery okay to discharge home on [facility] for PT and Skilled nurse. 2. UTI secondary to E Coli on Levaquin 500 mg daily started 11/16, no need for further management. No need for anti hypertensive has intermittent blood pressure increases. DVT prophylaxis - Lovenox here. Xarelto on DC CM consult- DC planning- patient here from [place] per staff nurse who spoke with Ortho- DC today. DC planning- home with home PT Discussed with Patient and nurse Miss Quiñones,with Team Psychologist Miss Vaughan and with her Daughter Mrs. Miky Dailey to the phone number [phone] Orthopedic Surgery aware of the possible travel of the patient by ground transportation on 10/25/16 to [place]. Discharge Planning Discharge Home with [facility]. Pt Condition on Discharge: Good Discharge Disposition: Disch w/ Home Health Serv Discharge Time: > 30 minutes Discharge Instructions DIET: Follow Instructions for: Heart Healthy Diet Activities you can perform: Toe Touch Weight Bearing Activities to Avoid: Shower Sadiq Martinez MD October 22, 2016 10:07
--- NOTE | 2016-10-22 10:08 | HHI.FF ---
Face to Face Verification Diagnosis: (1) Laceration of head (2) Head injury, acute (3) Fall (4) Intertrochanteric fracture of right femur Physical Therapy Order: Evaluate and Treat, Improve ambulation, Strength and gait training Home Health Nursing Order: Signs/symptoms of disease process Medication education-adverse effect Wound care and dressing changes I have seen patient Sujey Wolf on 10/22/16. My clinical findings support the need for the requested home health care services because: Ltd mobility - disease progression I certify that my clinical findings support that this patient is homebound because: Unsafe to leave home unassisted Sadiq Martinez MD October 22, 2016 10:07
[2016-10-22 11:54] VITALS: BP 128/68; PULSE 79; RESP 18; TEMP 98.1; O2SAT 98
== END 2016-10-22 13:34 | disposition home health service (06) | DRG 481 ==
LOC: NEPE 02:42 → NEDA 04:08 → NEDH 11:18 → N06B 22:56
PROVIDERS: ADMIT Internal Medicine; ATTEND Internal Medicine
PROC: 0QS606Z Reposition Right Upper Femur with Intramedullary Internal Fixation Device, Open Approach (ICD-10-PCS; principal; 2016-10-16 16:45)
DX: S72.141A Displaced intertrochanteric fracture of right femur, initial encounter for closed fracture (principal); N39.0 Urinary tract infection, site not specified; I51.7 Cardiomegaly; M81.0 Age-related osteoporosis without current pathological fracture; E87.6 Hypokalemia; B96.20 Unspecified Escherichia coli [E. coli] as the cause of diseases classified elsewhere; W01.0XXA Fall on same level from slipping, tripping and stumbling without subsequent striking against object, initial encounter
CPT/HCPCS: 71010; 73502; 76000; 80048; 81001; 82306; 85025; 85610; 86850; 86900; 86901; 87077; 87086; 87186; 93005; 93970; C1713; J0131; J0690; J1580; J1650; J2270; J3010; J3370